=== PATIENT | male | born 1950 | race African-American/Black ===

== ENCOUNTER 2018-05-03 21:43 | Inpatient (IN) ==
[2018-05-04 01:46] LABS: INR 1.1; PT Patient Result 12.3 SECS
[2018-05-04 01:47] LABS: Basophils % 0.5 % (0.0-0.8); Eosinophils # 0.1 10*3/uL (0.0-0.87); Hematocrit 37.7 VOL% (42.0-52.0); Immature Granulocytes % 0.6 %; Immature Granulocytes Absolute 0.05 #; Lymphocytes # 0.5 10*3/uL (1.4-4.0); Lymphocytes % 5.8 % (21.2-54.2); Mean Corpuscular HGB Conc 31.8 GM/DL (32-36); Mean Corpuscular Hemoglobin 31 PG (27-34); Mean Corpuscular Volume 98.4 FL (87-102); Mean Platelet Volume 11.9 FL (9.6-12.0); Monocytes # 0.9 10*3/uL (0.11-0.8); Monocytes % 11.2 % (1.7-12.7); Neutrophils # 6.7 10*3/uL (1.4-7.4); Neutrophils % 80.9 % (38.7-73.9); Platelet Count 121 T/CUMM (130-400); Red Blood Count 3.83 MC/CUMM (3.8-5.5); Red Cell Distribution Width 16.5 % (9.3-17.3); White Blood Count 8.3 T/CUMM (4-12)
[2018-05-04 02:08] LABS: Albumin 3.6 G/DL (3.4-5.0); Calcium 8.2 MG/DL (8.5-10.1); Osmolality,Calculated 279.7 MOS/KG (273-304); Potassium 4.4 MMOL/L (3.5-5.1); Total Protein 8.1 G/DL (6.4-8.3)
[2018-05-04 02:37] LABS: Band Neutrophils 1 % (0-10); Eosinophils 2 % (0-10); Lymphocytes 1 % (20-55); Nucleated Red Blood Cells 3 (0-5); Segmented Neutrophils 85 % (50-85); Total Cells Counted 100
[2018-05-04 02:39] LABS: Anisocytosis 1+; Hypochromasia Slight; Ovalocytes Few; Platelet Estimate Adequate
[2018-05-04] MEDS ORDERED: diphenhydrAMINE CAP 25 MG CAPSULE ONE (03:01)
[2018-05-04] MEDS ORDERED: diphenhydrAMINE CAP 25 MG CAPSULE PO STA (03:02)
[2018-05-04] MEDS ORDERED: ACETAMINOPHEN 325 MG TABLET PO PRN (03:30)
[2018-05-04] MEDS: PANTOPRAZOLE 40 MG TABLET PO SCH ×2 (09:00→20:33)
[2018-05-04] MEDS: MIDODRINE 5 MG TABLET PO SCH ×3 (09:00→20:34)
[2018-05-04] MEDS: CARVEDILOL 3.125 MG TABLET PO SCH ×2 (09:00→16:37)
[2018-05-04] MEDS: CINACALCET 30 MG TABLET PO SCH (09:00)
[2018-05-04] MEDS: HydrOXYzine PAMOATE 50 MG CAPSULE PO PRN ×2 (10:22→20:34)
[2018-05-04] MEDS ORDERED: FUROSEMIDE 40 MG/4 ML VIAL IV SCH (15:00)
[2018-05-04] MEDS: FUROSEMIDE 20 MG/2 ML VIAL IV SCH (15:50)
[2018-05-04 18:08] LABS: Hepatitis A Ab IgM Quant 0.14 Index; Hepatitis A Ab IgM Result Negative (Negative); Hepatitis B Core IgM Quant 0.11 Index; Hepatitis B Core IgM Result Negative (Negative); Hepatitis B Surface Ag Quant < 0.10 Index; Hepatitis B Surface Ag Result Negative (Negative); Hepatitis C Virus Ab Quant 0.11 Index; Hepatitis C Virus Ab Result Negative (Negative)
[2018-05-05 05:27] LABS: Basophils % 0.4 % (0.0-0.8); Eosinophils # 0.1 10*3/uL (0.0-0.87); Eosinophils % 0.9 % (0.00-10.9); Hematocrit 35.7 VOL% (42.0-52.0); Hemoglobin 11.4 GM/DL (14.0-18.0); Immature Granulocytes % 0.6 %; Immature Granulocytes Absolute 0.05 #; Lymphocytes # 0.7 10*3/uL (1.4-4.0); Lymphocytes % 7.6 % (21.2-54.2); Mean Corpuscular HGB Conc 31.9 GM/DL (32-36); Mean Corpuscular Hemoglobin 31 PG (27-34); Mean Corpuscular Volume 96.2 FL (87-102); Mean Platelet Volume 11.8 FL (9.6-12.0); Monocytes # 1.1 10*3/uL (0.11-0.8); Monocytes % 12.5 % (1.7-12.7); NRBC # 0.14 10*3/uL; Neutrophils # 6.7 10*3/uL (1.4-7.4); Platelet Count 146 T/CUMM (130-400); Red Blood Count 3.71 MC/CUMM (3.8-5.5); Red Cell Distribution Width 15.9 % (9.3-17.3); White Blood Count 8.6 T/CUMM (4-12)
[2018-05-05 05:45] LABS: Calcium 8.2 MG/DL (8.5-10.1); Osmolality,Calculated 277.1 MOS/KG (273-304); Potassium 4.6 MMOL/L (3.5-5.1)
[2018-05-05] MEDS: diphenhydrAMINE 2% CREAM 28 GM TUBE TOP PRN ×2 (10:10→15:20)
[2018-05-05] MEDS: CINACALCET 30 MG TABLET PO SCH (10:13)
[2018-05-05] MEDS: MIDODRINE 5 MG TABLET PO SCH ×3 (10:13→20:43)
[2018-05-05] MEDS: CARVEDILOL 3.125 MG TABLET PO SCH ×2 (10:14→16:20)
[2018-05-05] MEDS: FUROSEMIDE 20 MG/2 ML VIAL IV SCH (10:14)
[2018-05-05] MEDS: PANTOPRAZOLE 40 MG TABLET PO SCH ×2 (10:14→20:43)
[2018-05-05] MEDS: HydrOXYzine PAMOATE 50 MG CAPSULE PO PRN (20:43)
[2018-05-05] MEDS: ONDANSETRON 4 MG/2 ML VIAL IV PRN (21:05)
[2018-05-06 09:10] LABS: Calcium 8.2 MG/DL (8.5-10.1); Osmolality,Calculated 273.2 MOS/KG (273-304); Potassium 4.5 MMOL/L (3.5-5.1)
[2018-05-06] MEDS: CINACALCET 30 MG TABLET PO SCH (09:59)
[2018-05-06] MEDS: CARVEDILOL 3.125 MG TABLET PO SCH ×2 (09:59→17:00)
[2018-05-06] MEDS: MIDODRINE 5 MG TABLET PO SCH ×3 (09:59→21:46)
[2018-05-06] MEDS: FUROSEMIDE 20 MG/2 ML VIAL IV SCH (09:59)
[2018-05-06] MEDS: PANTOPRAZOLE 40 MG TABLET PO SCH ×2 (09:59→21:46)
[2018-05-06] MEDS: HydrOXYzine PAMOATE 50 MG CAPSULE PO PRN (09:59)
[2018-05-06] MEDS: ONDANSETRON 4 MG/2 ML VIAL IV PRN (17:30)
[2018-05-06] MEDS ORDERED: ALUM/MAG/SIMETH/LIDO VISC 1:1 30 ML BOTTLE PO ONE (20:55)
[2018-05-06] MEDS: ZALEPLON 5 MG CAPSULE PO PRN (22:56)
[2018-05-07 06:04] LABS: Basophils % 0.5 % (0.0-0.8); Eosinophils % 0.5 % (0.00-10.9); Hematocrit 36.2 VOL% (42.0-52.0); Hemoglobin 12.1 GM/DL (14.0-18.0); Immature Granulocytes % 0.7 %; Immature Granulocytes Absolute 0.06 #; Lymphocytes # 0.5 10*3/uL (1.4-4.0); Lymphocytes % 6.4 % (21.2-54.2); Mean Corpuscular HGB Conc 33.4 GM/DL (32-36); Mean Corpuscular Hemoglobin 31 PG (27-34); Mean Corpuscular Volume 93.5 FL (87-102); Mean Platelet Volume 12.1 FL (9.6-12.0); Monocytes # 1.5 10*3/uL (0.11-0.8); Monocytes % 17.8 % (1.7-12.7); NRBC # 0.16 10*3/uL; Neutrophils # 6.2 10*3/uL (1.4-7.4); Neutrophils % 74.1 % (38.7-73.9); Platelet Count 149 T/CUMM (130-400); Red Blood Count 3.87 MC/CUMM (3.8-5.5); Red Cell Distribution Width 15.6 % (9.3-17.3); White Blood Count 8.3 T/CUMM (4-12)
[2018-05-07 06:41] LABS: Calcium 8.4 MG/DL (8.5-10.1); Osmolality,Calculated 278.2 MOS/KG (273-304); Potassium 4.9 MMOL/L (3.5-5.1)
[2018-05-07 06:45] LABS: Hypochromasia 1+; Lymphocytes 8 % (20-55); Segmented Neutrophils 82 % (50-85); Target Cells Few; Total Cells Counted 100
[2018-05-07 06:46] LABS: Microcytosis Slight; Ovalocytes Slight; Platelet Estimate Adequate; Polychromasia Slight
[2018-05-07] MEDS: CINACALCET 30 MG TABLET PO SCH (09:24)
[2018-05-07] MEDS: PANTOPRAZOLE 40 MG TABLET PO SCH ×2 (09:25→22:09)
[2018-05-07] MEDS: CARVEDILOL 3.125 MG TABLET PO SCH ×2 (09:25→16:24)
[2018-05-07] MEDS: MIDODRINE 5 MG TABLET PO SCH ×3 (09:25→22:09)
[2018-05-07] MEDS: SEVELAMER CARBONATE 800 MG TABLET PO SCH ×3 (09:25→16:23)
[2018-05-07] MEDS: HydrOXYzine PAMOATE 50 MG CAPSULE PO PRN ×2 (09:27→22:09)
[2018-05-07] MEDS ORDERED: GLUCAGON 1 MG VIAL IM PRN (11:41)
[2018-05-07] MEDS ORDERED: DEXTROSE 50% 25 GM/50 ML VIAL IV PRN (11:41)
[2018-05-07] MEDS ORDERED: SKIN HEALING OINT (AQUAPHOR) 50 GM TUBE TOP PRN (11:49)
[2018-05-07] MEDS: ZALEPLON 5 MG CAPSULE PO PRN (22:09)
[2018-05-08 05:53] LABS: Basophils % 0.2 % (0.0-0.8); Eosinophils # 0.1 10*3/uL (0.0-0.87); Eosinophils % 0.6 % (0.00-10.9); Hematocrit 36.4 VOL% (42.0-52.0); Hemoglobin 12.2 GM/DL (14.0-18.0); Immature Granulocytes % 0.8 %; Immature Granulocytes Absolute 0.07 #; Lymphocytes # 0.6 10*3/uL (1.4-4.0); Lymphocytes % 7.1 % (21.2-54.2); Mean Corpuscular HGB Conc 33.5 GM/DL (32-36); Mean Corpuscular Hemoglobin 31 PG (27-34); Mean Corpuscular Volume 92.9 FL (87-102); Mean Platelet Volume 12.2 FL (9.6-12.0); Monocytes # 1.2 10*3/uL (0.11-0.8); Monocytes % 13.8 % (1.7-12.7); NRBC # 0.14 10*3/uL; Neutrophils # 6.7 10*3/uL (1.4-7.4); Neutrophils % 77.5 % (38.7-73.9); Platelet Count 141 T/CUMM (130-400); Red Blood Count 3.92 MC/CUMM (3.8-5.5); Red Cell Distribution Width 15.5 % (9.3-17.3); White Blood Count 8.7 T/CUMM (4-12)
[2018-05-08 06:10] LABS: Calcium 8.1 MG/DL (8.5-10.1); Osmolality,Calculated 274.8 MOS/KG (273-304); Potassium 5.1 MMOL/L (3.5-5.1)
[2018-05-08] MEDS: PANTOPRAZOLE 40 MG TABLET PO SCH ×2 (08:46→21:37)
[2018-05-08] MEDS: CARVEDILOL 3.125 MG TABLET PO SCH ×2 (08:46→16:49)
[2018-05-08] MEDS: CINACALCET 30 MG TABLET PO SCH (08:46)
[2018-05-08] MEDS: SEVELAMER CARBONATE 800 MG TABLET PO SCH ×3 (08:46→16:49)
[2018-05-08] MEDS: HydrOXYzine PAMOATE 50 MG CAPSULE PO PRN ×2 (11:15→21:37)
[2018-05-08] MEDS: MIDODRINE 5 MG TABLET PO SCH ×3 (11:15→21:37)
[2018-05-08] MEDS ORDERED: TUBERCULIN SKIN TEST 0.1 ML SYRINGE INTRADERM ONE (12:00)
[2018-05-09 05:11] LABS: Basophils % 0.4 % (0.0-0.8); Eosinophils # 0.1 10*3/uL (0.0-0.87); Eosinophils % 0.7 % (0.00-10.9); Hematocrit 34.7 VOL% (42.0-52.0); Hemoglobin 11.6 GM/DL (14.0-18.0); Immature Granulocytes % 0.9 %; Immature Granulocytes Absolute 0.07 #; Lymphocytes # 0.7 10*3/uL (1.4-4.0); Lymphocytes % 8.8 % (21.2-54.2); Mean Corpuscular HGB Conc 33.4 GM/DL (32-36); Mean Corpuscular Hemoglobin 31 PG (27-34); Mean Corpuscular Volume 93.5 FL (87-102); Mean Platelet Volume 11.7 FL (9.6-12.0); Monocytes # 1.1 10*3/uL (0.11-0.8); NRBC # 0.21 10*3/uL; Neutrophils # 5.7 10*3/uL (1.4-7.4); Neutrophils % 75.2 % (38.7-73.9); Platelet Count 138 T/CUMM (130-400); Red Blood Count 3.71 MC/CUMM (3.8-5.5); Red Cell Distribution Width 15.6 % (9.3-17.3); White Blood Count 7.5 T/CUMM (4-12)
[2018-05-09 05:27] LABS: Calcium 8.1 MG/DL (8.5-10.1); Osmolality,Calculated 274.2 MOS/KG (273-304); Potassium 4.3 MMOL/L (3.5-5.1)
[2018-05-09 05:30] LABS: Albumin 3.4 G/DL (3.4-5.0); Bilirubin,Direct 0.37 MG/DL (0.0-0.20); Bilirubin,Indirect 0.7 MG/DL (0.0-1.0); Bilirubin,Total 1.1 MG/DL (0.2-1.0); Total Protein 7.1 G/DL (6.4-8.3)
[2018-05-09] MEDS: PANTOPRAZOLE 40 MG TABLET PO SCH ×2 (09:48→21:43)
[2018-05-09] MEDS: SEVELAMER CARBONATE 800 MG TABLET PO SCH ×3 (09:48→17:00)
[2018-05-09] MEDS: HydrOXYzine PAMOATE 50 MG CAPSULE PO PRN ×2 (09:48→21:45)
[2018-05-09] MEDS: CARVEDILOL 3.125 MG TABLET PO SCH ×2 (09:48→17:01)
[2018-05-09] MEDS: FAMOTIDINE 20 MG TABLET PO SCH (09:48)
[2018-05-09] MEDS: CINACALCET 30 MG TABLET PO SCH (09:49)
[2018-05-09] MEDS: MIDODRINE 5 MG TABLET PO SCH ×3 (09:49→21:43)
[2018-05-09] MEDS: ZALEPLON 5 MG CAPSULE PO PRN (21:45)
[2018-05-10 07:58] VITALS: BP 122/66
[2018-05-10] MEDS: SEVELAMER CARBONATE 800 MG TABLET PO SCH ×2 (08:54→13:20)
[2018-05-10] MEDS: CINACALCET 30 MG TABLET PO SCH (08:54)
[2018-05-10] MEDS: PANTOPRAZOLE 40 MG TABLET PO SCH (08:54)
[2018-05-10] MEDS: HydrOXYzine PAMOATE 50 MG CAPSULE PO PRN (08:54)
[2018-05-10] MEDS: FAMOTIDINE 20 MG TABLET PO SCH (08:54)
[2018-05-10] MEDS: MIDODRINE 5 MG TABLET PO SCH (08:54)
[2018-05-10] MEDS: CARVEDILOL 3.125 MG TABLET PO SCH (08:54)
== END 2018-05-10 13:50 | DRG 291 ==
LOC: N.EDINP 21:43 → N.ED 21:43 → SUATTDRO 05-04 03:29 → N.2E 05-04 03:55 → SUATTDRO 05-05 09:09
PROVIDERS: ADMIT Internal Medicine; ATTEND Internal Medicine Cardiovascular Disease